=== PATIENT | female | born 1955 | race Two or more races ===

== ENCOUNTER 2016-07-10 10:32 | Emergency (ER) | payer OTHER ==
[2016-07-10 10:55] VITALS: BP 116/79; TEMP 99.4
[2016-07-10] MEDS ORDERED: IPRATROPIUM/ALBUTEROL 3 ML DEYVIAL IH ONE (10:55)
--- NOTE | 2016-07-10 11:49 | UCPHY ---
H & P Time Seen by Provider: 07/10/16 11:37 Patient Type: Established HPI/ROS: This patient presents with multiple symptoms all of which began yesterday. She has a productive cough, tight chest, shortness of breath, sore throat, chills and subjective fever. She has not had a flu shot. She does admit to headache and upper back pain. She denies any rash. REVIEW OF SYSTEMS: Constitutional: Fever, malaise, fatigue Eyes: No complaints ENT: Sore throat, no nasal congestion, no ear pain Respiratory: Productive cough, shortness of breath with wheezing Cardiac: Chest tightness Gastrointestinal: Not addressed Genitourinary: Not addressed Musculoskeletal: Upper back myalgias Skin: No rash Neurological: Headache Smoking Status: Never smoked Physical Exam: GENERAL: Well-appearing, well-nourished and in [id number] distress. She appears to be acutely ill but not toxic. HEAD: Atraumatic, normocephalic. EYES: , sclera anicteric, conjunctiva are normal. ENT: TMs normal, nares patent, oropharynx clear without exudates. Moist mucous membranes. NECK: Normal range of motion, supple without lymphadenopathy or JVD. There is diffuse posterior muscular tenderness extending in to the upper thoracic back. LUNGS: Breath sounds clear to auscultation bilaterally and equal. The exam was done after an initial DuoNeb had been administered. No definite wheezes are appreciated although the expiratory phase of respiration is prolonged slightly. HEART: Regular rate and rhythm . EXTREMITIES: Normal range of motion, no pitting or edema. NEUROLOGICAL: Cranial nerves II through XII grossly intact. Normal speech, normal gait. PSYCH: Normal mood, normal affect. SKIN: Warm, dry, normal turgor, no visible rashes or lesions. Constitutional: Initial Vital Signs Temperature (C) 37.4 C 07/10/16 10:51 Heart Rate 92 07/10/16 10:51 Respiratory Rate 20 07/10/16 10:51 Blood Pressure 116/79 07/10/16 10:51 O2 Sat (%) 94 07/10/16 10:51 O2 Delivery Mode Room Air Allergies/Adverse Reactions: Sulfa (Sulfonamide Antibiotics) Allergy (Verified 07/10/16 10:51) Home Medications: Medication Instructions Recorded Albuterol [Albuterol HFA 8 gm] 2 puffs IH QID #1 mdi 07/10/16 Oseltamivir Phosphate [Tamiflu 75 75 mg PO BID #10 cap 07/10/16 mg (RX)] Medical Decision Making Differential Diagnosis: This patient's symptoms are consistent with influenza a and because of the duration of the illness she was treated with Tamiflu. I do not believe that antibiotics are indicated. - Data Points Laboratory Results: 07/10/16 07/10/16 Unknown 11:00 Influenza Typ A,B (DFA) POSITIVE FOR FLU A H (NEGATIVE) Group A Strep Screen NEGATIVE (NEGATIVE) Group A Strep DNA Pending Medications Given: Discontinued Medications Albuterol/Ipratropium (Duoneb) 3 ml IH EDNOW ONE Stop: 07/10/16 10:56 Last Admin: 07/10/16 11:00 Dose: 3 ml Departure - Departure Disposition: Home, Routine, Self-Care Clinical Impression: Influenza A, Bronchospasm Condition: Good Instructions: Influenza (ED), Bronchospasm (ED) Additional Instructions: This illness will last approximately 1 week. If you feel that your symptoms are worsening you should be re-evaluated as quickly as possible. Use the inhaler at least 4 times daily but it is safe to use it every 2 hours if necessary. Keep herself well hydrated but do not force herself to eat. Limit your activities while you are feeling ill. Adult Pain & Fever Control: We recommend Acetaminophen (Tylenol) and Ibuprofen (Motrin, Advil) for pain and fever control. When fever is high or pain severe, both drugs can be used at the same time, but at different intervals. Please note the time differences. Your dose is: Acetaminophen [650]mg every 4 to 6 hours ibuprofen [600]mg every [6] hours with food OR naproxen Sodium (Aleve) [440]mg every 12 hours. Note: do not take Acetaminophen with Hydrocodone (Vicodin, Lortab) or Oxycodone (Percocet). These medications also contain Acetaminophen. No more than 3000 mg of Acetaminophen should be taken in 24 hours (for an adult) . The maximal dose of ibuprofen that it is safe in a 24-hour period is 2400 mg. You may take 400 mg every 4 hours, 600 mg every 6 hours or 800 mg every 8 hours safely. Prescriptions: Albuterol [Albuterol HFA 8 gm] 2 puffs IH QID #1 mdi Oseltamivir Phosphate [Tamiflu 75 mg (RX)] 75 mg PO BID #10 cap - PQRS PQRS Measurement: Not applicable
[2016-07-10 11:57] VITALS: PULSE 94; RESP 18; O2SAT 98
== END 2016-07-10 11:53 | disposition home or self-care (01) ==
LOC: CED 10:32
DX: J10.1 Influenza due to other identified influenza virus with other respiratory manifestations (principal); J98.01 Acute bronchospasm
CPT/HCPCS: 87400-PO; 87880-PO; 99214-PO; G0463-PO

== ENCOUNTER → 2018-07-20 | Outpatient (CLI) | payer OTHER | LOC: CIMAGING 08:11 | PROVIDERS: ATTEND Physician Assistant | DX: K76.0 Fatty (change of) liver, not elsewhere classified (principal) | CPT/HCPCS: 76705-PO ==